=== PATIENT | male | born 1955 | race African-American/Black ===

== ENCOUNTER 2018-09-25 17:07 | Emergency (ER) | payer SELFPAY ==
[~2018-09-25] VITALS: Ht 177.8 cm; Wt 73.0 kg
[2018-09-25 17:10] VITALS: BP 141/86
[2018-09-25] MEDS ORDERED: KETOROLAC 60MG/2ML VIAL IM ONE (17:45)
== END 2018-09-25 18:18 | disposition home or self-care (01) ==
LOC: ER 17:07
DX: S39.012A Strain of muscle, fascia and tendon of lower back, initial encounter (principal); V79.88XA Bus occupant (driver) (passenger) injured in other specified transport accidents, initial encounter; Y93.89 Activity, other specified; Y92.89 Other specified places as the place of occurrence of the external cause; Y99.8 Other external cause status
CPT/HCPCS: 96372; 99283; J1885; Z7610

== ENCOUNTER 2019-10-18 03:38 | Emergency (ER) | payer MEDICAID, OTHER ==
[~2019-10-18] VITALS: Ht 170.2 cm; Wt 82.0 kg
[2019-10-18 03:44] VITALS: BP 127/73
[2019-10-18] MEDS ORDERED: ACETAMINOPHEN 325MG TABLET PO ONE (05:00)
== END 2019-10-18 05:47 | disposition home or self-care (01) ==
LOC: ER 03:38
DX: M25.562 Pain in left knee (principal); R03.0 Elevated blood-pressure reading, without diagnosis of hypertension; W01.198A Fall on same level from slipping, tripping and stumbling with subsequent striking against other object, initial encounter; Y93.01 Activity, walking, marching and hiking; Y92.480 Sidewalk as the place of occurrence of the external cause
CPT/HCPCS: 73562; 99283